=== PATIENT | female | born 1950 ===

== ENCOUNTER 2022-06-06 07:04 | Day surgery (SDC) | payer OTHER ==
[~2022-06-06] VITALS: Ht 160 cm; Wt 79.8 kg
[~2022-06-06 07:04] MED LIST: ATIVAN1 M1 PO; LIPOFLAVONOID PO; REGLAN PO; TRENTAL PO
== END 2022-06-06 17:45 | disposition home or self-care (01) ==
LOC: CIR.AMB 07:04
PROVIDERS: ATTEND Obstetrics & Gynecology
DX: N85.8 Other specified noninflammatory disorders of uterus (principal); Z88.6 Allergy status to analgesic agent; Z91.013 Allergy to seafood; Z99.89 Dependence on other enabling machines and devices; G47.33 Obstructive sleep apnea (adult) (pediatric)

== ENCOUNTER 2023-11-19 10:07 | Day surgery (SDC) | payer OTHER ==
[2023-11-13 10:18] LABS: HEMATOCRIT 36.5 % (36.0-45.00); HEMOGLOBIN 12.1 g/dL (12.0-15.00); MEAN CELL VOLUME 88.1 fL (80.00-100.00); MEAN CORPUSCULAR HEMOGLOBIN 29.3 pg (27.00-32.0); MEAN CORPUSCULAR HGB CONC 33.2 g/dl (32.0-36.0); PLATELET COUNT 245 K/uL (150-450); RED BLOOD COUNT 4.14 M/uL (4.00-6.00)
[2023-11-13 10:29] LABS: PH,URINE 6.5 (5.0-8.0); URINE APPEARANCE Clear; URINE BILIRRUBIN Negative (NEGATIVE); URINE BLOOD Negative; URINE COLOR Yellow; URINE GLUCOSE Negative (NEGATIVE); URINE LEUKOCYTE Trace; URINE NITRATE Negative; URINE PROTEIN Negative (NEGATIVE); URINE UROBILINOGEN 0.2 E.U./dl
[2023-11-13 10:30] LABS: URINE BACTERIA 35.2 uL (0.0-1933); URINE EPITHELIAL CELLS 6.6 uL (0.0-38.8); URINE RBC 4.7 uL (0.0-20.8); URINE WBC 7.7 uL (0.0-23.2)
[2023-11-13 11:00] LABS: INR 0.96; PARTIAL THROMBOPLASTIN TIME 24.4 SECONDS (22.0-34.0); PROTHROMBIN TIME 10.1 SECONDS (9.0-11.5)
[2023-11-13 11:38] LABS: INR 0.97; PARTIAL THROMBOPLASTIN TIME 25.9 SECONDS (22.0-34.0); PROTHROMBIN TIME 10.2 SECONDS (9.0-11.5)
[2023-11-13 11:41] LABS: ALBUMIN 4.2 gm/dL (3.4-5.0); BILIRUBIN TOTAL 0.72 mg/dL (0.3-1.2); CALCIUM 10.4 mg/dL (8.5-10.1); CREATININE SERUM 0.76 mg/dL (0.55-1.02); GFR 75.02; GLOBULINA 3.2 G/DL (2.4-3.5); POTASSIUM 3.93 mEq/L (3.5-5.1); TOTAL PROTEIN 7.4 gm/dL (6.4-8.2)
[2023-11-19] MEDS ORDERED: CEFOXITIN SODIUM 2,000 MG VIAL IV ONE ×2 (14:05→16:30)
[2023-11-19] MEDS ORDERED: POVIDONE-IODINE 118 ML BOTT TOP ONE ×2 (15:38→16:30)
[2023-11-19] MEDS ORDERED: ONDANSETRON HCL 2 MG/ML VIAL ONE (17:57)
== END 2023-11-19 22:35 | disposition home or self-care (01) ==
LOC: CIR.AMB 10:07
PROVIDERS: ATTEND Obstetrics & Gynecology
DX: N84.0 Polyp of corpus uteri (principal); Z88.6 Allergy status to analgesic agent; Z91.013 Allergy to seafood; Z20.822 Contact with and (suspected) exposure to COVID-19